=== PATIENT | female | born 1945 | race Caucasian/White ===

== ENCOUNTER 2023-03-19 11:54 | Outpatient (REF) | payer MEDICARE, SELFPAY ==
[2023-03-19 13:43] LABS: Basophils Absolute Auto 0.02 K/uL (0.00-0.30); Basophils Percent Auto 0.3 % (0.0-3.0); Eosinophils Absolute Auto 0.48 K/uL (0.00-0.50); Eosinophils Percent Auto 6.4 % (0.0-7.0); Hematocrit 39.6 % (33.0-51.0); Hemoglobin* 12.4 gm/dL (12.0-16.0); Immature Granulocytes Abs Auto 0.02 K/uL (0.00-0.30); Immature Granulocytes Pct Auto 0.3 %; Lymphocytes Absolute Auto 3.11 K/uL (0.90-2.90); Lymphocytes Percent Auto 41.3 % (20-44); Mean Corpuscular HGB Conc 31 gm/dL (32-36); Mean Corpuscular Hemoglobin 24 pg (26-34); Mean Corpuscular Volume 77 fL (80-100); Monocytes Percent Auto 10.2 % (0.0-11.0); Neutrophils Percent Auto 41.5 % (42.0-72.0); Platelet Count* 338 K/uL (140-440); RDW Coefficient of Variation % 15.6 % (11.5-15.5); Red Blood Count 5.16 m/uL (4.00-5.20); White Blood Count* 7.53 K/uL (4.50-11.00)
[2023-03-19 14:03] LABS: Slide Review Reflex No
[2023-03-19 14:22] LABS: Chloride* 104 mmol/L (96-114); Potassium* 5.1 mmol/L (3.6-5.1); Sodium* 137 mmol/L (135-149)
[2023-03-19 14:24] LABS: Creatinine* 0.8 mg/dL (0.5-1.5); Estimated Glomerular Filt Rate 77 ml/min
[2023-03-19 14:25] LABS: Blood Urea Nitrogen* 25 mg/dL (7-30); Calcium* 10.1 mg/dL (8.4-10.6); Carbon Dioxide* 26 mmol/L (20-32); Glucose* 104 mg/dL (60-115)
== END 2023-03-19 11:55 | disposition home or self-care (01) ==
LOC: NPINS 11:54
PROVIDERS: PCP Family Medicine; Visit Provider Family Medicine
DX: I10 Essential (primary) hypertension (principal); J45.909 Unspecified asthma, uncomplicated
CPT/HCPCS: 80048; 80198; 85025

== ENCOUNTER 2023-08-03 17:16 | Outpatient (CLI) | payer MEDICARE, SELFPAY | END 2023-08-03 17:17 | disposition home or self-care (01) | LOC: AMB 08-28 15:42 | PROVIDERS: PCP Family Medicine; Visit Provider Emergency Medicine Emergency Medical Services | DX: R10.9 Unspecified abdominal pain (principal) | CPT/HCPCS: A0425; A0427 ==

== ENCOUNTER 2023-08-03 17:31 | Inpatient (IN) | payer MEDICARE, SELFPAY ==
[2023-08-03] VITALS (20 sets, daily range): BP systolic 134–158; BP diastolic 81–99; PULSE 76–107; RESP 18–20; TEMP 36.3–36.9; O2SAT 92–96; BMI 29.2; BMI 38.3
--- NOTE | 2023-08-03 18:02 | ED_ITS ---
HPI - General Adult General Chief complaint: Abdominal Pain Stated complaint: Vomiting, ill Time Seen by Provider: 08/03/23 17:36 History of Present Illness HPI narrative: This 78-year-old female comes in from a care facility with her [id number]-[id number]-vgh. She has had a couple episodes of vomiting today. The patient is a poor historian with poor memory. Her kcxbab-tr-oiz states that she has been feeling some abdominal symptoms over the past few days. Her tlkngb-cc-pja reports that there was an obstruction in the past a few years ago that resolved spontaneously over a couple days in the hospital. The patient has had a bowel movement this morning. She arrives with normal vital signs except her pulse is a mildly tachycardic. She denies having any symptoms of dysuria. She does indicate that there is some pain in her left lateral abdomen. Related Data Home Medications Medication Instructions Recorded Confirmed apixaban 5 mg tablet (Eliquis) 5 mg PO BID 08/03/23 08/03/23 apixaban 5 mg tablet (Eliquis) 5 mg PO Q12H 08/03/23 08/03/23 budesonide-formoterol HFA 160 2 puff inhalation Q12H 08/03/23 08/03/23 mcg-4.5 mcg/actuation aerosol inhaler (Symbicort) cholecalciferol (vitamin D3) 125 125 mcg PO DAILY 08/03/23 08/03/23 mcg (5,000 unit) capsule enalapril maleate 5 mg tablet 5 mg PO DAILY 08/03/23 08/03/23 loratadine 10 mg tablet 10 mg PO DAILY 08/03/23 08/03/23 melatonin 3 mg capsule 3 mg PO HS PRN 08/03/23 08/03/23 theophylline 400 mg 800 mg PO DAILY 08/03/23 08/03/23 tablet,extended release 24 hr tiotropium bromide 18 mcg capsule 1 cap inhalation DAILY 08/03/23 08/03/23 with inhalation device (Spiriva with HandiHaler) Allergies Allergy/AdvReac Type Severity Reaction Status Date / Time diphenhydramine Allergy Verified 08/03/23 17:47 naproxen Allergy Verified 08/03/23 17:47 Review of Systems Status of ROS: Reports: unobtainable due to mental status PFSH PFSH Social History Smoking Status: Never smoker How often do you have a drink containing alcohol: 2-3 times a week AUDIT-C Alcohol total score: 3 Non-prescribed substance use: denies use service: No Exam Narrative: Exam Narrative: Constitutional: Well-developed, well-nourished, no acute distress. HEENT: Normocephalic, atraumatic. Neck: Normal range of motion. Nontender. Supple. Heart: Regular. No murmurs. Normal rate. Intact distal pulses. Lungs: Clear to auscultation. No chest discomfort. No wheezes, rhonchi, or rales. Abdomen: Normal bowel sounds. She reports tenderness in the left lateral abdomen. No rebound tenderness. Genitalia: Deferred. Back: No midline tenderness. Normal range of motion. Extremities: Normal range of motion. No injury. Skin: Intact. No rash. Warm. No erythema or pallor. Neurologic: No altered sensation. No weakness. Alert. Psychiatric: No suicidality. No anxiety or depression. No insomnia. Nursing notes and vitals signs are reviewed. Const: Vital Signs, click to edit/add: Vital Signs - 24 hr 08/03/23 17:34 08/03/23 17:46 08/03/23 18:30 Temperature 97.7 F Pulse Rate Pulse Rate [Right Pulse Oximeter] 107 H 104 H Pulse Rate [Right Radial] 104 H 94 Respiratory Rate 18 18 18 Blood Pressure Blood Pressure [Ri ght Upper Arm] 158/85 H 153/81 H 143/82 H Pulse Oximetry 95 93 92 Oxygen Delivery Me thod Room Air Room Air Room Air 08/03/23 19:04 08/03/23 19:58 08/03/23 20:00 Temperature Pulse Rate 91 92 Pulse Rate [Right Pulse Oximeter] 90 Pulse Rate [Right Radial] 90 Respiratory Rate 18 Blood Pressure Blood Pressure [Ri ght Upper Arm] 155/81 H Pulse Oximetry 94 95 94 Oxygen Delivery Me thod Room Air 08/03/23 20:02 08/03/23 20:15 08/03/23 20:30 Temperature Pulse Rate 95 91 90 Pulse Rate [Right Pulse Oximeter] Pulse Rate [Right Radial] Respiratory Rate Blood Pressure 134/82 Blood Pressure [Ri ght Upper Arm] Pulse Oximetry 95 96 95 Oxygen Delivery Me thod 08/03/23 20:32 08/03/23 20:45 08/03/23 21:00 Temperature Pulse Rate 76 87 88 Pulse Rate [Right Pulse Oximeter] Pulse Rate [Right Radial] Respiratory Rate Blood Pressure 152/85 H Blood Pressure [Ri ght Upper Arm] Pulse Oximetry 95 95 96 Oxygen Delivery Me thod 08/03/23 21:02 Temperature Pulse Rate 84 Pulse Rate [Right Pulse Oximeter] Pulse Rate [Right Radial] Respiratory Rate Blood Pressure 153/84 H Blood Pressure [Ri ght Upper Arm] Pulse Oximetry 95 Oxygen Delivery Me thod Course Vital Signs Vital signs: Initial Vital Signs Temperature 97.7 F 08/03/23 17:34 Temperature Source Temporal Artery Scan 08/03/23 17:34 Pulse Rate 107 H 08/03/23 17:34 Respiratory Rate 18 08/03/23 17:34 Blood Pressure 158/85 H 08/03/23 17:34 Blood Pressure Mean 109 H 08/03/23 17:34 Blood Pressure Position Sitting 08/03/23 17:34 Pulse Oximetry 95 08/03/23 17:34 Oxygen Delivery Method Room Air 08/03/23 17:34 Vital Signs Temperature 97.7 F 08/03/23 17:34 Pulse Rate 107 H 08/03/23 17:34 Respiratory Rate 18 08/03/23 17:34 Blood Pressure 158/85 H 08/03/23 17:34 Pulse Oximetry 95 08/03/23 17:34 Oxygen Delivery Method Room Air 08/03/23 17:34 Temperature 97.7 F 08/03/23 17:34 Pulse Rate 84 08/03/23 21:02 Respiratory Rate 18 08/03/23 19:04 Blood Pressure 153/84 H 08/03/23 21:02 Pulse Oximetry 95 08/03/23 21:02 Oxygen Delivery Method Room Air 08/03/23 19:04 Medications Administered Medications: Discontinued Medications Generic Name Dose Route Start Last Admin Trade Name Freq PRN Reason Stop Dose Admin Sodium Chloride 500 mls @ 500 mls/hr 08/03/23 18:00 08/03/23 19:50 0.9 % Sodium Chloride 500 Ml IV 08/03/23 18:59 Infused .Q1H ONE Infusion Ondansetron HCl 4 mg 08/03/23 18:00 08/03/23 18:38 Ondansetron 2 Mg/Ml Inj IVP 08/03/23 18:01 4 mg ONCE ONE Administration Medical Decision Making MDM Narrative Medical decision making narrative: This patient comes in with some vomiting and abdominal discomfort. She has had a bowel obstruction in the past but has not had any abdominal surgery history. X-ray imaging today does show evidence of bowel obstruction. Lab results returned with reassuring findings. Patient has an IV in place and received fluids and nausea medication. I did speak with the surgeon on-call, Dr. Vergara, regarding these findings. A CT scan of the abdomen and pelvis is ordered and after completed the patient will be able to be admitted into the hospital under the care of Dr. Barnes. Lab Data Labs: Lab Results 08/03/23 Range/Units 18:28 WBC 11.50 H (4.50-11.00) K/uL RBC 5.80 H (4.00-5.20) m/uL Hgb 14.0 (12.0-16.0) gm/dL Hct 43.6 (33.0-51.0) % MCV 75 L (80-100) fL MCH 24 L (26-34) pg MCHC 32 (32-36) gm/dL RDW Coeff of Silas 15.3 (11.5-15.5) % Plt Count 329 (140-440) K/uL Neut % (Auto) 75.0 H (42.0-72.0) % Lymph % (Auto) 15.3 L (20-44) % [place] % (Auto) 9.3 (0.0-11.0) % Eos % (Auto) 0.1 (0.0-7.0) % Baso % (Auto) 0.1 (0.0-3.0) % Neut # (Auto) 8.60 H (1.7-7.0) K/uL Lymph # (Auto) 1.80 (0.90-2.90) K/uL [place] # (Auto) 1.10 H (0.00-0.90) K/UL Eos # (Auto) 0.00 (0.00-0.50) K/uL Baso # (Auto) 0.00 (0.00-0.30) K/uL Abs Immat Gran (auto) 0.00 (0.00-0.30) K/uL Imm/Tot Granulo (auto) 0.2 % Sodium 134 L (135-149) mmol/L Potassium 4.4 (3.6-5.1) mmol/L Chloride 99 (96-114) mmol/L Carbon Dioxide 20 (20-32) mmol/L Anion Gap 15 (7-15) mEq/L BUN 34 H (7-30) mg/dL Creatinine 1.0 (0.5-1.5) mg/dL Estimated Creat Clear 41.33 Estimated GFR 58 ml/min Glucose 124 H (60-115) mg/dL Calcium 10.4 (8.4-10.6) mg/dL Discharge Plan Discharge Clinical Impression: Small bowel obstruction Patient Disposition: Admitted As Inpatient Condition: Unchanged Prescriptions: No Action budesonide-formoterol [Symbicort] 160-4.5 mcg/actuation HFA aerosol inhaler 2 puff INHALATION Q12H cholecalciferol (vitamin D3) 125 mcg (5,000 unit) capsule 125 mcg PO DAILY Eliquis 5 mg tablet 5 mg PO BID enalapril maleate 5 mg tablet 5 mg PO DAILY loratadine 10 mg tablet 10 mg PO DAILY Eliquis 5 mg tablet 5 mg PO Q12H melatonin 3 mg capsule 3 mg PO HS PRN theophylline 400 mg tablet extended release 24 hr 800 mg PO DAILY tiotropium bromide [Spiriva with HandiHaler] 18 mcg capsule, w/inhalation device 1 cap INHALATION DAILY Follow Up/Referrals: Melchor aY MD [Primary Care Provider] -
[2023-08-03 18:35] LABS: Basophils Percent Auto 0.1 % (0.0-3.0); Eosinophils Percent Auto 0.1 % (0.0-7.0); Hematocrit 43.6 % (33.0-51.0); Immature Granulocytes Pct Auto 0.2 %; Lymphocytes Percent Auto 15.3 % (20-44); Mean Corpuscular HGB Conc 32 gm/dL (32-36); Mean Corpuscular Hemoglobin 24 pg (26-34); Mean Corpuscular Volume 75 fL (80-100); Monocytes Percent Auto 9.3 % (0.0-11.0); Platelet Count* 329 K/uL (140-440); RDW Coefficient of Variation % 15.3 % (11.5-15.5)
[2023-08-03] MEDS: 0.9 % SODIUM CHLORIDE 500 ML 500 ML IV (18:38)
[2023-08-03] MEDS: ONDANSETRON 2 MG/ML inj 4 MG IVP (18:38)
[2023-08-03 18:48] LABS: Slide Review Reflex No
[2023-08-03 18:49] LABS: Chloride* 99 mmol/L (96-114)
[2023-08-03 18:50] LABS: Potassium* 4.4 mmol/L (3.6-5.1); Sodium* 134 mmol/L (135-149)
--- NOTE | 2023-08-03 18:50 | CRLHL7_ITS ---
For Patients: As a result of the Century Cures Act, medical imaging exams and procedure reports are released immediately into your electronic medical record. You may view this report before your referring provider. If you have questions, please contact your health care provider. INDICATION: Abdominal pain. TECHNIQUE: Flat and upright abdomen. FINDINGS: Stent of loops of small bowel with air-fluid levels compatible with small bowel obstruction. No free air. Dictated by Graham Cameron MD @ 08/03/2023 9:08:16 PM (Electronically Signed)
[2023-08-03 18:52] LABS: Est. Creatinine Clearance* 41.33; Estimated Glomerular Filt Rate 58 ml/min
[2023-08-03 18:53] LABS: Anion Gap 15 mEq/L (7-15); Blood Urea Nitrogen* 34 mg/dL (7-30); Calcium* 10.4 mg/dL (8.4-10.6); Carbon Dioxide* 20 mmol/L (20-32); Glucose* 124 mg/dL (60-115)
--- NOTE | 2023-08-03 21:15 | CRLHL7_ITS ---
For Patients: As a result of the Century Cures Act, medical imaging exams and procedure reports are released immediately into your electronic medical record. You may view this report before your referring provider. If you have questions, please contact your health care provider. INDICATION: Small-bowel obstruction TECHNIQUE: CT abdomen and pelvis acquired with 83 cc Isovue 370 IV contrast. COMPARISON: None. FINDINGS: Lower chest: Unremarkable. Liver: Unremarkable. Normal in size and attenuation. No masses. Gallbladder and bile ducts: Cholelithiasis. No biliary dilatation. Pancreas: Unremarkable. No mass or inflammation. Spleen: Unremarkable. Normal in size. No masses. Adrenal glands: Unremarkable. No nodules. Kidneys: Unremarkable. No masses, stones, or hydronephrosis. GI tract: Dilated fluid-filled loops of small bowel with transition point in the anterior abdomen around image 53 of series 2. Findings compatible with mechanical small-bowel obstruction. Vasculature: Unremarkable. Mesenteric arteries are patent. Lymph nodes: No lymphadenopathy. Omentum/Peritoneum/Abdominal Wall: Unremarkable. No sign of mass or infiltration. No free air or significant free fluid. Pelvis: Unremarkable. Bones: Unremarkable for age. IMPRESSION: Small-bowel obstruction. Please note that all CT scans at this facility use dose modulation, iterative reconstruction, and/or weight-based dosing when appropriate to reduce radiation dose to as low as reasonably achievable. Dictated by Graham Cameron MD @ 08/03/2023 11:46:33 PM (Electronically Signed)
--- NOTE | 2023-08-03 22:02 | ED.NURSE ---
Nurse to nurse report given to bebeto FRASER. patient going to room 245.
--- NOTE | 2023-08-03 23:35 | P.IMHP_ITS ---
Hospitalist- H&P: HPI History of Present Illness Time Seen by Provider: 22:30 Date Seen: 08/04/23 Chief complaint: Vomiting, ill Narrative: Trini Perez is a 78 year old female from [facility] who was brought in by her gfujjo-ts-qzq for nausea and vomiting. Her vkzrwo-yw-xnd is not available to give history at this time. Trini is a poor historian and does not recall vomiting. She is unable to give me much history except to say that she is asthmatic and that she had pain in her left abdomen. She doesn't know when the pain started. She thinks she's had a blockage before. She does not otherwise know her medical history. Some is obtained from records sent by [facility], but this does not include a surgical history. Review of Systems Status of ROS: Reports: unobtainable due to medical condition (Poor historian, doesn't remember when or if symptoms occurred.) [facility] Medical History (Updated 08/04/23 @ 00:40 by Esha Barnes MD) Hyperlipidemia ?E78.5 - Hyperlipidemia, unspecified (ICD-10) Gout ?M10.9 - Gout, unspecified (ICD-10) Essential hypertension ?I10 - Essential (primary) hypertension (ICD-10) Asthma ?J45.909 - Unspecified asthma, uncomplicated (ICD-10) Cognitive impairment ?R41.89 - Other symptoms and signs involving cognitive functions and awareness (ICD-10) Pulmonary embolism ?I26.99 - Other pulmonary embolism without acute cor pulmonale (ICD-10) Social History (Updated 08/04/23 @ 00:26 by Esha Barnes MD) Narrative: [facility]. Says she has a glass of wine some days, but not all days in the week. Lifelong nonsmoker. POLST from 01/04/2022 states FULL CODE. What is your current living situation?: I presently have a place to live Problems where you live: no known problems Problems where you live details: NA In the past 12 months, utilities in danger of being shut off: no In past 12 months, lack of transportation kept you from medical appts, meetings, work, or getting things needed for daily living: no In the past 12 mos, have been you worried that your food would run out before you had money to buy more?: never true In the past 12 mos, the food you bought just didn't last and you didn't have money to buy more?: never true Highest level of school completed/degree received: some college, no degree Smoking Status: Never smoker How often do you have a drink containing alcohol: 2-3 times a week Alcohol type: wine Alcohol type details: 1 glass AUDIT-C Alcohol total score: 3 Non-prescribed substance use: denies use Caffeine: No How often does anyone, including family, friends and others, physically hurt you : never How often does anyone, including family, friends and others, insult or talk down to you: never How often does anyone, including family, friends and others, threaten you with harm: never How often does anyone, including family, friends and others, scream or curse at you: never service: No Meds Home Medications and Allergies Home Medications Medication Instructions Recorded Confirmed Type apixaban 5 mg tablet (Eliquis) 5 mg PO BID 08/03/23 08/03/23 History budesonide-formoterol HFA 160 2 puff inhalation Q12H 08/03/23 08/03/23 History mcg-4.5 mcg/actuation aerosol inhaler (Symbicort) cholecalciferol (vitamin D3) 125 125 mcg PO DAILY 08/03/23 08/03/23 History mcg (5,000 unit) capsule enalapril maleate 5 mg tablet 5 mg PO DAILY 08/03/23 08/03/23 History loratadine 10 mg tablet 10 mg PO DAILY 08/03/23 08/03/23 History melatonin 3 mg capsule 3 mg PO HS PRN 08/03/23 08/03/23 History theophylline 400 mg 600 mg PO DAILY 08/03/23 08/04/23 History tablet,extended release 24 hr tiotropium bromide 18 mcg capsule 1 cap inhalation DAILY 08/03/23 08/03/23 History with inhalation device (Spiriva with HandiHaler) albuterol sulfate 90 mcg/actuation 2 puff inhalation Q4H PRN 08/04/23 08/04/23 History aerosol inhaler lutein 10 mg tablet 20 mg PO DAILY 08/04/23 08/04/23 History Allergies Allergy/AdvReac Type Severity Reaction Status Date / Time diphenhydramine Allergy Verified 08/03/23 17:47 naproxen Allergy Verified 08/03/23 17:47 Exam Narrative: Exam Narrative: General: No acute distress. Awake alert oriented to self, place, basic situation, but not details. HEENT: Normocephalic atraumatic, pupils equally round and reactive to light and accommodation. Oropharynx clear. Mucous membranes are slightly dry. No cervical lymphadenopathy, thyromegaly or carotid bruits. No JVD. Cardiovascular: Regular rate and rhythm. No murmurs, gallops, or rubs. Chest: No increased work of breathing. Clear to auscultation bilaterally. No crackles or wheezes. Abdomen: Bowel sounds diminished. Obese. Soft, nondistended, mildly tender in the left upper abdomen, without rebound tenderness or guarding. No hepatosplenomegaly or masses. Extremities: No edema, no cyanosis or clubbing. Skin: No jaundice, no pallor, no rashes. Const: Vital Signs, click to edit/add: Vital Signs - 24 hr 08/03/23 17:34 08/03/23 17:46 08/03/23 18:30 Temperature 97.7 F Pulse Rate Pulse Rate [Left R adial] Pulse Rate [Right Pulse Oximeter] 107 H 104 H Pulse Rate [Right Radial] 104 H 94 Respiratory Rate 18 18 18 Blood Pressure Blood Pressure [Ri ght Arm] Blood Pressure [Ri ght Upper Arm] 158/85 H 153/81 H 143/82 H Pulse Oximetry 95 93 92 Oxygen Delivery Me thod Room Air Room Air Room Air 08/03/23 19:04 08/03/23 19:58 08/03/23 20:00 Temperature Pulse Rate 91 92 Pulse Rate [Left R adial] Pulse Rate [Right Pulse Oximeter] 90 Pulse Rate [Right Radial] 90 Respiratory Rate 18 Blood Pressure Blood Pressure [Ri ght Arm] Blood Pressure [Ri ght Upper Arm] 155/81 H Pulse Oximetry 94 95 94 Oxygen Delivery Me thod Room Air 08/03/23 20:02 08/03/23 20:15 08/03/23 20:30 Temperature Pulse Rate 95 91 90 Pulse Rate [Left R adial] Pulse Rate [Right Pulse Oximeter] Pulse Rate [Right Radial] Respiratory Rate Blood Pressure 134/82 Blood Pressure [Ri ght Arm] Blood Pressure [Ri ght Upper Arm] Pulse Oximetry 95 96 95 Oxygen Delivery Me thod 08/03/23 20:32 08/03/23 20:45 08/03/23 21:00 Temperature Pulse Rate 76 87 88 Pulse Rate [Left R adial] Pulse Rate [Right Pulse Oximeter] Pulse Rate [Right Radial] Respiratory Rate Blood Pressure 152/85 H Blood Pressure [Ri ght Arm] Blood Pressure [Ri ght Upper Arm] Pulse Oximetry 95 95 [facility] 21:02 08/03/23 21:03 08/03/23 21:15 Temperature Pulse Rate 84 87 90 Pulse Rate [Left R adial] Pulse Rate [Right Pulse Oximeter] Pulse Rate [Right Radial] Respiratory Rate Blood Pressure 153/84 H Blood Pressure [Ri ght Arm] Blood Pressure [Ri ght Upper Arm] Pulse Oximetry 95 95 95 [facility] 08/03/23 21:30 08/03/23 21:31 08/03/23 22:26 Temperature 97.4 F L Pulse Rate 76 90 Pulse Rate [Left R adial] 89 Pulse Rate [Right Pulse Oximeter] Pulse Rate [Right Radial] Respiratory Rate 20 Blood Pressure 155/99 H Blood Pressure [Ri ght Arm] 145/84 H Blood Pressure [Ri ght Upper Arm] Pulse Oximetry 95 95 96 [facility] 08/03/23 22:29 Temperature 97.4 F L Pulse Rate Pulse Rate [Left R adial] 89 Pulse Rate [Right Pulse Oximeter] Pulse Rate [Right Radial] Respiratory Rate 20 Blood Pressure Blood Pressure [Ri ght Arm] 145/84 H Blood Pressure [Ri ght Upper Arm] Pulse Oximetry 96 [facility] Hospitalist - H&P: Result Labs Labs: Short CBC 08/03/23 Range/Units 18:28 WBC 11.50 H (4.50-11.00) K/uL Hgb 14.0 (12.0-16.0) gm/dL Hct 43.6 (33.0-51.0) % Plt Count 329 (140-440) K/uL BMP 08/03/23 18:28 Sodium 134 L Potassium 4.4 Chloride 99 Carbon Dioxide 20 BUN 34 H Creatinine 1.0 Glucose 124 H Calcium 10.4 Ordering Physician: Meng Alvarado M.D. Date of Service: 08/03/23 Procedure(s): XR abdomen min 2V Accession Number(s): [id number] cc: Meng Alvarado M.D.; Melchor Ya M.D.~ For Patients: As a result of the Cures Act, medical imaging exams and procedure reports are released immediately into your electronic medical record. You may view this report before your referring provider. If you have questions, please contact your health care provider. INDICATION: Abdominal pain. TECHNIQUE: Flat and upright abdomen. FINDINGS: Stent of loops of small bowel with air-fluid levels compatible with small bowel obstruction. No free air. Dictated by Graham Cameron MD @ 08/03/2023 9:08:16 PM (Electronically Signed) Ordering Physician: Meng Alvarado M.D. Date of Service: 08/03/23 Procedure(s): CT abdomen pelvis w con Accession Number(s): [id number] cc: Meng Alvarado M.D.; Melchor Ya M.D.~ For Patients: As a result of the Cures Act, medical imaging exams and procedure reports are released immediately into your electronic medical record. You may view this report before your referring provider. If you have questions, please contact your health care provider. INDICATION: Small-bowel obstruction TECHNIQUE: CT abdomen and pelvis acquired with 83 cc Isovue 370 IV contrast. COMPARISON: None. FINDINGS: Lower chest: Unremarkable. Liver: Unremarkable. Normal in size and attenuation. No masses. Gallbladder and bile ducts: Cholelithiasis. No biliary dilatation. Pancreas: Unremarkable. No mass or inflammation. Spleen: Unremarkable. Normal in size. No masses. Adrenal glands: Unremarkable. No nodules. Kidneys: Unremarkable. No masses, stones, or hydronephrosis. GI tract: Dilated fluid-filled loops of small bowel with transition point in the anterior abdomen around image 53 of series 2. Findings compatible with mechanical small-bowel obstruction. Vasculature: Unremarkable. Mesenteric arteries are patent. Lymph nodes: No lymphadenopathy. Omentum/Peritoneum/Abdominal Wall: Unremarkable. No sign of mass or infiltration. No free air or significant free fluid. Pelvis: Unremarkable. Bones: Unremarkable for age. IMPRESSION: Small-bowel obstruction. Please note that all CT scans at this facility use dose modulation, iterative reconstruction, and/or weight-based dosing when appropriate to reduce radiation dose to as low as reasonably achievable. Dictated by Graham Cameron MD @ 08/03/2023 11:46:33 PM (Electronically Signed) Assessment and Plan Assessment and plan (1) Small bowel obstruction: Problem comment: - She is not currently nauseous and looks fairly well. I do not think she needs an NGT at this time. IVF maintenance. Admit, NPO, ondansetron prn. No known h/o abdominal surgeries. Obtain records from [place]. Will consult general surgery. Status: Acute (2) Cognitive impairment: Problem comment: Mild, will need to obtain outside records as patient is essentially unable to give history. Status: Chronic (3) Asthma: Problem comment: Continue home meds. Status: Chronic (4) Essential hypertension: Problem comment: Continue home meds. Status: Chronic (5) Hyperlipidemia: Problem comment: Continue home meds. Status: Chronic Plan H/o PE: continue Eliquis.
[2023-08-04] MEDS: LACTATED RINGERS 1000 ML 1,000 ML 75 ML IV ×2 (00:33→11:13)
[2023-08-04] MEDS: SODIUM CHLORIDE 0.9 % (FLUSH) 10 ML SYRINGE 5 ML IVF ×2 (02:05→21:00)
[2023-08-04] MEDS: ONDANSETRON 2 MG/ML inj 4 MG IVP (02:05)
[2023-08-04 04:56] VITALS: BP 179/100; PULSE 99; RESP 20; TEMP 36.6; O2SAT 93
[2023-08-04] MEDS: PROCHLORPERAZINE 5 MG/ML VIAL 10 MG IV (05:38)
--- NOTE | 2023-08-04 06:37 | PC.NURSE ---
[id number]: Patient cooperative with cares. A&Ox3 with confusion. A1/walker/GB. 2 small emesis at approximately 0200 and 0500. Zofran not effective so Briseyda WEST updated and Compazine ordered and administered for relief. NPO. Rating abdominal pain 09/21. Declined pain medications. BS hypoactive.
[2023-08-04 06:39] LABS: Basophils Percent Auto 0.2 % (0.0-3.0); Eosinophils Percent Auto 0.1 % (0.0-7.0); Hematocrit 42.3 % (33.0-51.0); Hemoglobin* 13.6 gm/dL (12.0-16.0); Immature Granulocytes Pct Auto 0.3 %; Lymphocytes Percent Auto 18.2 % (20-44); Mean Corpuscular HGB Conc 32 gm/dL (32-36); Mean Corpuscular Hemoglobin 24 pg (26-34); Mean Corpuscular Volume 75 fL (80-100); Monocytes Percent Auto 10.6 % (0.0-11.0); Neutrophils Percent Auto 70.6 % (42.0-72.0); Platelet Count* 294 K/uL (140-440); RDW Coefficient of Variation % 15.6 % (11.5-15.5); Red Blood Count 5.65 m/uL (4.00-5.20); White Blood Count* 11.56 K/uL (4.50-11.00)
[2023-08-04 06:46] LABS: Slide Review Reflex No
[2023-08-04 07:00] LABS: Chloride* 100 mmol/L (96-114); Potassium* 4.5 mmol/L (3.6-5.1); Sodium* 135 mmol/L (135-149)
[2023-08-04 07:03] LABS: Anion Gap 12 mEq/L (7-15); Blood Urea Nitrogen* 32 mg/dL (7-30); Carbon Dioxide* 23 mmol/L (20-32); Est. Creatinine Clearance* 41.33; Estimated Glomerular Filt Rate 58 ml/min
[2023-08-04 07:04] LABS: Calcium* 10.3 mg/dL (8.4-10.6); Glucose* 119 mg/dL (60-115)
[2023-08-04 09:00] VITALS: BP 143/94; PULSE 90; RESP 20; TEMP 36.6; O2SAT 98
[2023-08-04] MEDS: APIXABAN 5 MG TABLET PO ×2 (09:03→21:00)
[2023-08-04] MEDS: ENALAPRIL MALEATE 10 MG TABLET 5 MG PO (09:04)
[2023-08-04 11:15] VITALS: BP 146/78; PULSE 74; RESP 18; TEMP 36.9; O2SAT 96
--- NOTE | 2023-08-04 11:17 | PM.IMPN1 ---
Progress Note: A&P Assessment and plan (1) Small bowel obstruction: Problem details: - She is not currently nauseous and looks fairly well. I do not think she needs an NGT at this time. IVF maintenance. Admit, NPO, ondansetron prn. No known h/o abdominal surgeries. Obtain records from [place]. Will consult general surgery. Due to cognitive impairment may be difficult to determine when she is passing gas Status: Acute (2) Cognitive impairment: Problem details: Mild, will need to obtain outside records as patient is essentially unable to give history. Status: Chronic (3) Asthma: Problem details: Continue home meds. Asthma seems quiescent at this time Status: Chronic (4) Essential hypertension: Problem details: Continue home meds. Status: Chronic (5) Pulmonary embolism: Problem details: Remains on eliquis for this. Continue Eliquis as patient does not appear to be needing surgery at this time Status: Acute Plan Continue in hospital for IV fluids, monitoring of bowel obstruction and potential complications and monitoring for evidence of resolution of bowel obstruction. Obtain additional records if possible to determine previous history of bowel obstruction and previous history of abdominal surgery. Time Spent With Patient Total time spent: Total time spent today is 55 minutes, 40 minutes in coordination of care and attempts to obtain prior medical history. Subjective Date Seen: 08/04/23 Interval history: 78-year-old female resident of [facility] admitted through the emergency department last night with nausea and vomiting. Patient is unable to give any history of this. She tells me she thinks she had some left flank plain yesterday but that is gone today. She had an emesis during the night but otherwise reports feeling fine this morning she reports she is hungry and thirsty today. She does not know if she has had a bowel movement or passed any gas. She thinks she had a normal bowel movement yesterday. She is unsure if she has had previous bowel obstructions or previous abdominal surgery. She does have a midline laparotomy scar from unknown previous surgery. Prior records are still pending Exam Narrative: Exam Narrative: She is alert and appears in no distress. She gives her own history. Speech is fluent. Respirations are clear to auscultation. Cardiovascular: S1, S2, regular rate and rhythm. Abdomen: Bowel sounds present. Abdomen is soft without tenderness or mass. She does not appear to have abdominal distension. Midline laparotomy scar is noted. Extremities without edema. She moves all 4 extremities well. Const: Vital Signs, click to edit/add: Vital Signs - 24 hr 08/03/23 17:34 08/03/23 17:46 08/03/23 18:30 Temperature 97.7 F Pulse Rate Pulse Rate [Left R adial] Pulse Rate [Right Pulse Oximeter] 107 H 104 H Pulse Rate [Right Radial] 104 H 94 Respiratory Rate 18 18 18 Blood Pressure Blood Pressure [Ri ght Arm] Blood Pressure [Ri ght Upper Arm] 158/85 H 153/81 H 143/82 H Pulse Oximetry 95 93 92 Oxygen Delivery Me thod Room Air Room Air Room Air 08/03/23 19:04 08/03/23 19:58 08/03/23 20:00 Temperature Pulse Rate 91 92 Pulse Rate [Left R adial] Pulse Rate [Right Pulse Oximeter] 90 Pulse Rate [Right Radial] 90 Respiratory Rate 18 Blood Pressure Blood Pressure [Ri ght Arm] Blood Pressure [Ri ght Upper Arm] 155/81 H Pulse Oximetry 94 95 94 Oxygen Delivery Me thod Room Air 08/03/23 20:02 08/03/23 20:15 08/03/23 20:30 Temperature Pulse Rate 95 91 90 Pulse Rate [Left R adial] Pulse Rate [Right Pulse Oximeter] Pulse Rate [Right Radial] Respiratory Rate Blood Pressure 134/82 Blood Pressure [Ri ght Arm] Blood Pressure [Ri ght Upper Arm] Pulse Oximetry 95 96 95 Oxygen Delivery Me thod 08/03/23 20:32 08/03/23 20:45 08/03/23 21:00 Temperature Pulse Rate 76 87 88 Pulse Rate [Left R adial] Pulse Rate [Right Pulse Oximeter] Pulse Rate [Right Radial] Respiratory Rate Blood Pressure 152/85 H Blood Pressure [Ri ght Arm] Blood Pressure [Ri ght Upper Arm] Pulse Oximetry 95 95 96 Oxygen Delivery Me thod 08/03/23 21:02 08/03/23 21:03 08/03/23 21:15 Temperature Pulse Rate 84 87 90 Pulse Rate [Left R adial] Pulse Rate [Right Pulse Oximeter] Pulse Rate [Right Radial] Respiratory Rate Blood Pressure 153/84 H Blood Pressure [Ri ght Arm] Blood Pressure [Ri ght Upper Arm] Pulse Oximetry 95 95 95 Oxygen Delivery Me thod 08/03/23 21:30 08/03/23 21:31 08/03/23 22:26 Temperature 97.4 F L Pulse Rate 76 90 Pulse Rate [Left R adial] 89 Pulse Rate [Right Pulse Oximeter] Pulse Rate [Right Radial] Respiratory Rate 20 Blood Pressure 155/99 H Blood Pressure [Ri ght Arm] 145/84 H Blood Pressure [Ri ght Upper Arm] Pulse Oximetry 95 95 96 Oxygen Delivery Me thod Room Air 08/03/23 22:29 08/03/23 23:52 08/04/23 04:56 Temperature 97.4 F L 98.5 F 97.8 F Pulse Rate Pulse Rate [Left R adial] 89 88 99 Pulse Rate [Right Pulse Oximeter] Pulse Rate [Right Radial] Respiratory Rate 20 20 20 Blood Pressure Blood Pressure [Ri ght Arm] 145/84 H 152/91 H 179/100 H Blood Pressure [Ri ght Upper Arm] Pulse Oximetry 96 94 93 Oxygen Delivery Me thod Room Air Room Air Room Air 08/04/23 09:00 08/04/23 09:00 Temperature 97.9 F Pulse Rate Pulse Rate [Left R adial] 90 Pulse Rate [Right Pulse Oximeter] 90 Pulse Rate [Right Radial] Respiratory Rate 20 Blood Pressure Blood Pressure [Ri ght Arm] 143/94 H Blood Pressure [Ri ght Upper Arm] Pulse Oximetry 98 Oxygen Delivery Me thod Room Air Documenting provider has reviewed patient's vital signs: yes Labs Labs: Laboratory Results - last 24 hr 08/03/23 08/04/23 18:28 05:40 WBC 11.50 H 11.56 H RBC 5.80 H 5.65 H Hgb 14.0 13.6 Hct 43.6 42.3 MCV 75 L 75 L MCH 24 L 24 L MCHC 32 32 RDW Coeff of Silas 15.3 15.6 H Plt Count 329 294 Neut % (Auto) 75.0 H 70.6 Lymph % (Auto) 15.3 L 18.2 L [facility] % (Auto) 9.3 10.6 Eos % (Auto) 0.1 0.1 Baso % (Auto) 0.1 0.2 Neut # (Auto) 8.60 H 8.20 H Lymph # (Auto) 1.80 2.10 [facility] # (Auto) 1.10 H 1.20 H Eos # (Auto) 0.00 0.00 Baso # (Auto) 0.00 0.00 Abs Immat Gran (auto) 0.00 0.00 Imm/Tot Granulo (auto) 0.2 0.3 Sodium 134 L 135 Potassium 4.4 4.5 Chloride 99 100 Carbon Dioxide 20 23 Anion Gap 15 12 BUN 34 H 32 H Creatinine 1.0 1.0 Estimated Creat Clear 41.33 41.33 Estimated GFR 58 58 Glucose 124 H 119 H Calcium 10.4 10.3
[2023-08-04 15:00] VITALS: BP 149/82; PULSE 78; PULSE 95; RESP 18; TEMP 37.2; O2SAT 95
--- NOTE | 2023-08-04 15:04 | PM.GSCN ---
History of Present Illness Consult details Date Seen: 08/04/23 Consult date: 08/04/23 Narrative: Trini is a 78-year-old female presented to the emergency department yesterday from her apartment at [facility] for nausea and vomiting. She states that yesterday she was not feeling well and developed pain on her left side. She states that she ?laid low. ? She is not sure why she was brought in, but per report she was vomiting. She states that she had a bowel movement yesterday. She has not been passing gas and stools been here but just now she has noted some gurgling in her stomach. She denies any nausea. She is thirsty. She states she has had a bowel obstruction previously. She has had abdominal surgery in the past but she is not sure what it was for. She states that it was a long time ago and she does not remember. She has not been vomiting this morning but did vomit once overnight. She is on Eliquis for PE. [facility] Medical History (Updated 08/04/23 @ 11:25 by Aditya Will MD) Hyperlipidemia ?E78.5 - Hyperlipidemia, unspecified (ICD-10) Gout ?M10.9 - Gout, unspecified (ICD-10) Essential hypertension ?I10 - Essential (primary) hypertension (ICD-10) Asthma ?J45.909 - Unspecified asthma, uncomplicated (ICD-10) Cognitive impairment ?R41.89 - Other symptoms and signs involving cognitive functions and awareness (ICD-10) Pulmonary embolism ?I26.99 - Other pulmonary embolism without acute cor pulmonale (ICD-10) Social History (Updated 08/04/23 @ 00:26 by Esha Barnes MD) Narrative: [facility]. Says she has a glass of wine some days, but not all days in the week. Lifelong nonsmoker. POLST from 01/04/2022 states FULL CODE. What is your current living situation?: I presently have a place to live Problems where you live: no known problems Problems where you live details: NA In the past 12 months, utilities in danger of being shut off: no In past 12 months, lack of transportation kept you from medical appts, meetings, work, or getting things needed for daily living: no In the past 12 mos, have been you worried that your food would run out before you had money to buy more?: never true In the past 12 mos, the food you bought just didn't last and you didn't have money to buy more?: never true Highest level of school completed/degree received: some college, no degree Smoking Status: Never smoker How often do you have a drink containing alcohol: 2-3 times a week Alcohol type: wine Alcohol type details: 1 glass AUDIT-C Alcohol total score: 3 Non-prescribed substance use: denies use Caffeine: No How often does anyone, including family, friends and others, physically hurt you: never How often does anyone, including family, friends and others, insult or talk down to you: never How often does anyone, including family, friends and others, threaten you with harm: never How often does anyone, including family, friends and others, scream or curse at you: never service: No Meds Home Medications and Allergies Home Medications Medication Instructions Recorded Confirmed Type apixaban 5 mg tablet (Eliquis) 5 mg PO BID 08/03/23 08/03/23 History budesonide-formoterol HFA 160 2 puff inhalation Q12H 08/03/23 08/03/23 History mcg-4.5 mcg/actuation aerosol inhaler (Symbicort) cholecalciferol (vitamin D3) 125 125 mcg PO DAILY 08/03/23 08/03/23 History mcg (5,000 unit) capsule enalapril maleate 5 mg tablet 5 mg PO DAILY 08/03/23 08/03/23 History loratadine 10 mg tablet 10 mg PO DAILY 08/03/23 08/03/23 History tiotropium bromide 18 mcg capsule 1 cap inhalation DAILY 08/03/23 08/03/23 History with inhalation device (Spiriva with HandiHaler) acetaminophen 500 mg tablet (Pain 1,000 mg PO BID 08/04/23 08/04/23 History Reliever Extra Strength (acetaminophen)) lutein 10 mg tablet 20 mg PO DAILY 08/04/23 08/04/23 History melatonin 3 mg tablet 3 mg PO HS 08/04/23 08/04/23 History theophylline 600 mg 600 mg PO DAILY asthma 08/04/23 08/04/23 History tablet,extended release 24 hr Allergies Allergy/AdvReac Type Severity Reaction Status Date / Time diphenhydramine Allergy Verified 08/03/23 17:47 naproxen Allergy Verified 08/03/23 17:47 Exam Narrative: Exam Narrative: General appearance: Alert, cooperative, and in no distress Eyes: PERRLA, eye lids clear, and sclera white HENT Head: Normocephalic Ears: External ears normal Pulmonary: Breathing nonlabored on room air Cardiovascular Heart: Regular rate Extremities: warm and well perfused Gastrointestinal Abdominal: Lower midline scar. Abdomen is protuberant. Possibly distended. Minimally tender to palpation. No guarding or rebound. Hypoactive bowel sounds. Musculoskeletal: Extremities: Upper: Both upper extremities have normal joint range of motion and intact strength. Lower: Both lower extremities have normal joint range of motion and intact strength. Skin: Normal skin color, texture, and turgor. Neurologic: No focal deficits Psychiatric: Alert, oriented, cooperative, normal affect. Const: Vital Signs, click to edit/add: Vital Signs - 24 hr 08/03/23 17:34 08/03/23 17:46 08/03/23 18:30 Temperature 97.7 F Pulse Rate Pulse Rate [Left R adial] Pulse Rate [Right Pulse Oximeter] 107 H 104 H Pulse Rate [Right Radial] 104 H 94 Respiratory Rate 18 18 18 Blood Pressure Blood Pressure [Ri ght Arm] Blood Pressure [Ri ght Upper Arm] 158/85 H 153/81 H 143/82 H Pulse Oximetry 95 93 92 Oxygen Delivery Me thod Room Air Room Air Room Air 08/03/23 19:04 08/03/23 19:58 08/03/23 20:00 Temperature Pulse Rate 91 92 Pulse Rate [Left R adial] Pulse Rate [Right Pulse Oximeter] 90 Pulse Rate [Right Radial] 90 Respiratory Rate 18 Blood Pressure Blood Pressure [Ri ght Arm] Blood Pressure [Ri ght Upper Arm] 155/81 H Pulse Oximetry 94 95 94 Oxygen Delivery Me thod Room Air 08/03/23 20:02 08/03/23 20:15 08/03/23 20:30 Temperature Pulse Rate 95 91 90 Pulse Rate [Left R adial] Pulse Rate [Right Pulse Oximeter] Pulse Rate [Right Radial] Respiratory Rate Blood Pressure 134/82 Blood Pressure [Ri ght Arm] Blood Pressure [Ri ght Upper Arm] Pulse Oximetry 95 96 95 Oxygen Delivery Me thod 08/03/23 20:32 08/03/23 20:45 08/03/23 21:00 Temperature Pulse Rate 76 87 88 Pulse Rate [Left R adial] Pulse Rate [Right Pulse Oximeter] Pulse Rate [Right Radial] Respiratory Rate Blood Pressure 152/85 H Blood Pressure [Ri ght Arm] Blood Pressure [Ri ght Upper Arm] Pulse Oximetry 95 95 96 Oxygen Delivery Me thod 08/03/23 21:02 08/03/23 21:03 08/03/23 21:15 Temperature Pulse Rate 84 87 90 Pulse Rate [Left R adial] Pulse Rate [Right Pulse Oximeter] Pulse Rate [Right Radial] Respiratory Rate Blood Pressure 153/84 H Blood Pressure [Ri ght Arm] Blood Pressure [Ri ght Upper Arm] Pulse Oximetry 95 95 95 Oxygen Delivery Me thod 08/03/23 21:30 08/03/23 21:31 08/03/23 22:26 Temperature 97.4 F L Pulse Rate 76 90 Pulse Rate [Left R adial] 89 Pulse Rate [Right Pulse Oximeter] Pulse Rate [Right Radial] Respiratory Rate 20 Blood Pressure 155/99 H Blood Pressure [Ri ght Arm] 145/84 H Blood Pressure [Ri ght Upper Arm] Pulse Oximetry 95 95 96 Oxygen Delivery Me thod Room Air 08/03/23 22:29 08/03/23 23:52 08/04/23 04:56 Temperature 97.4 F L 98.5 F 97.8 F Pulse Rate Pulse Rate [Left R adial] 89 88 99 Pulse Rate [Right Pulse Oximeter] Pulse Rate [Right Radial] Respiratory Rate 20 20 20 Blood Pressure Blood Pressure [Ri ght Arm] 145/84 H 152/91 H 179/100 H Blood Pressure [Ri ght Upper Arm] Pulse Oximetry 96 94 93 Oxygen Delivery Me thod Room Air Room Air Room Air 08/04/23 09:00 08/04/23 09:00 08/04/23 11:15 Temperature 97.9 F 98.5 F Pulse Rate Pulse Rate [Left R adial] 90 74 Pulse Rate [Right Pulse Oximeter] 90 Pulse Rate [Right Radial] Respiratory Rate 20 18 Blood Pressure Blood Pressure [Ri ght Arm] 143/94 H 146/78 H Blood Pressure [Ri ght Upper Arm] Pulse Oximetry 98 96 Oxygen Delivery Me thod Room Air Room Air Results Labs Labs: Abnormal lab results 08/03/23 08/04/23 Range/Units 18:28 05:40 WBC 11.50 H 11.56 H (4.50-11.00) K/uL RBC 5.80 H 5.65 H (4.00-5.20) m/uL MCV 75 L 75 L (80-100) fL MCH 24 L 24 L (26-34) pg RDW Coeff of Silas 15.6 H (11.5-15.5) % Neut % (Auto) 75.0 H (42.0-72.0) % Lymph % (Auto) 15.3 L 18.2 L (20-44) % Neut # (Auto) 8.60 H 8.20 H (1.7-7.0) K/uL [place] # (Auto) 1.10 H 1.20 H (0.00-0.90) K/UL Sodium 134 L (135-149) mmol/L BUN 34 H 32 H (7-30) mg/dL Glucose 124 H 119 H (60-115) mg/dL Diabetes panel 08/03/23 08/04/23 Range/Units 18:28 05:40 Sodium 134 L 135 (135-149) mmol/L Potassium 4.4 4.5 (3.6-5.1) mmol/L Chloride 99 100 (96-114) mmol/L Carbon Dioxide 20 23 (20-32) mmol/L BUN 34 H 32 H (7-30) mg/dL Creatinine 1.0 1.0 (0.5-1.5) mg/dL Glucose 124 H 119 H (60-115) mg/dL Calcium 10.4 10.3 (8.4-10.6) mg/dL Calcium panel 08/03/23 08/04/23 Range/Units 18:28 05:40 Calcium 10.4 10.3 (8.4-10.6) mg/dL Pituitary panel 08/03/23 08/04/23 Range/Units 18:28 05:40 Sodium 134 L 135 (135-149) mmol/L Potassium 4.4 4.5 (3.6-5.1) mmol/L Chloride 99 100 (96-114) mmol/L Carbon Dioxide 20 23 (20-32) mmol/L BUN 34 H 32 H (7-30) mg/dL Creatinine 1.0 1.0 (0.5-1.5) mg/dL Glucose 124 H 119 H (60-115) mg/dL Calcium 10.4 10.3 (8.4-10.6) mg/dL Adrenal panel 08/03/23 08/04/23 Range/Units 18:28 05:40 Sodium 134 L 135 (135-149) mmol/L Potassium 4.4 4.5 (3.6-5.1) mmol/L Chloride 99 100 (96-114) mmol/L Carbon Dioxide 20 23 (20-32) mmol/L BUN 34 H 32 H (7-30) mg/dL Creatinine 1.0 1.0 (0.5-1.5) mg/dL Glucose 124 H 119 H (60-115) mg/dL Calcium 10.4 10.3 (8.4-10.6) mg/dL All other labs normal. Imaging Abdomen CT scan report/results: report reviewed and image reviewed Additional studies: INDICATION: Small-bowel obstruction TECHNIQUE: CT abdomen and pelvis acquired with 83 cc Isovue 370 IV contrast. COMPARISON: None. FINDINGS: Lower chest: Unremarkable. Liver: Unremarkable. Normal in size and attenuation. No masses. Gallbladder and bile ducts: Cholelithiasis. No biliary dilatation. Pancreas: Unremarkable. No mass or inflammation. Spleen: Unremarkable. Normal in size. No masses. Adrenal glands: Unremarkable. No nodules. Kidneys: Unremarkable. No masses, stones, or hydronephrosis. GI tract: Dilated fluid-filled loops of small bowel with transition point in the anterior abdomen around image 53 of series 2. Findings compatible with mechanical small-bowel obstruction. Vasculature: Unremarkable. Mesenteric arteries are patent. Lymph nodes: No lymphadenopathy. Omentum/Peritoneum/Abdominal Wall: Unremarkable. No sign of mass or infiltration. No free air or significant free fluid. Pelvis: Unremarkable. Bones: Unremarkable for age. IMPRESSION: Small-bowel obstruction. Please note that all CT scans at this facility use dose modulation, iterative reconstruction, and/or weight-based dosing when appropriate to reduce radiation dose to as low as reasonably achievable. Dictated by Graham Cameron MD @ 08/03/2023 11:46:33 PM Assessment and Plan Assessment and plan (1) Small bowel obstruction: Problem comment: - She is not currently nauseous and looks fairly well. I do not think she needs an NGT at this time. IVF maintenance. Admit, NPO, ondansetron prn. No known h/o abdominal surgeries. Obtain records from [place]. Will consult general surgery. Due to cognitive impairment may be difficult to determine when she is passing gas Status: Acute (2) Pulmonary embolism: Problem comment: Remains on eliquis for this. Continue Eliquis as patient does not appear to be needing surgery at this time Status: Acute (3) Cognitive impairment: Problem comment: Mild, will need to obtain outside records as patient is essentially unable to give history. Status: Chronic (4) Hyperlipidemia: Problem comment: Continue home meds. Status: Chronic (5) Essential hypertension: Problem comment: Continue home meds. Status: Chronic (6) Asthma: Problem comment: Continue home meds. Asthma seems quiescent at this time Status: Chronic Plan Trini is a 78-year-old female a small-bowel obstruction. She does have history of an unknown surgery, possibly ovarian cyst excision in the past. I explained to her that management of bowel obstruction consists of bowel rest, NPO and time. If she develops nausea or vomiting, consideration should be have her NG tube placement. I am okay with her having ice chips for comfort. -abdomen is currently benign and she is comfortable. Therefore Eliquis has not been held. I think this is reasonable, however she does not have relief of her obstruction, then, we will need to hold this in anticipation for potential surgical exploration. -she can have some ice chips for comfort, however I explained that she should minimize excessive p.o. intake as this will make her more uncomfortable if she continues to be obstructed. -if she develops worsening pain, tachycardia or other signs of bowel ischemia, would need to proceed to the OR more urgently.
--- NOTE | 2023-08-04 15:50 | PC.NURSE ---
Pt denies pain, N/V. No antiemetics needed on writers shift. Pt up with SBA/independent with use of 2wheel walker. Pt has hx of dementia, unable to answer when last BM was; states yesterday but doesn't know day or date.
[2023-08-04 19:00] VITALS: BP 156/77; PULSE 83; RESP 18; TEMP 37.1; O2SAT 93
[2023-08-04] MEDS: LACTATED RINGERS 1000 ML 1,000 ML 125 ML IV (19:49)
--- NOTE | 2023-08-04 21:24 | PC.NURSE ---
[id number] Pt pleasant and cooperative, some forgetfulness noted. Up to BR x1, walker, GB, SBA. NPO with some ice chips for comfort, no N/V this shift.
[2023-08-04 23:44] VITALS: BP 154/90; PULSE 82; RESP 22; TEMP 36.9; O2SAT 92
[2023-08-05] MEDS: HYDROmorphone 0.5 mg/0.5 ml inj IVP (03:00)
[2023-08-05] MEDS: SODIUM CHLORIDE 0.9 % (FLUSH) 10 ML SYRINGE 5 ML IVF ×2 (03:01→21:09)
[2023-08-05 03:05] VITALS: BP 174/92; PULSE 77; RESP 20; TEMP 37.1; O2SAT 90
[2023-08-05] MEDS: LACTATED RINGERS 1000 ML 1,000 ML 125 ML IV ×3 (03:07→19:21)
--- NOTE | 2023-08-05 06:32 | PC.NURSE ---
[id number]: Patient cooperative with cares. BS hypo. Patient reports passing gas but nurse did not witnessed any such events. A1/walker/GB. At beginning of shift patient reported an ache in abdomen. Mid-shift patient reported abdominal discomfort and rated 4/10 pain. PRN Dilaudid administered for relief.
[2023-08-05 07:35] VITALS: BP 168/83; PULSE 74; RESP 20; TEMP 36.9; O2SAT 96
[2023-08-05] MEDS: ENALAPRIL MALEATE 10 MG TABLET 5 MG PO (08:59)
[2023-08-05] MEDS: APIXABAN 5 MG TABLET PO ×2 (08:59→21:09)
[2023-08-05 11:00] VITALS: BP 153/78; PULSE 72; RESP 20; TEMP 36.8; O2SAT 95
--- NOTE | 2023-08-05 11:50 | P.GSPN_ITS ---
Subjective Subjective Date Seen: 08/05/23 Interval history: Trini Is doing better. She is denying pain. States she is passing gas from below. No nausea. No bowel movement yet. Exam Narrative: Exam Narrative: General: No acute distress Abdomen: Soft. Nontender. Hypoactive bowel sounds. Const: Vital Signs, click to edit/add: Vital Signs - 24 hr 08/04/23 15:00 08/04/23 19:00 08/04/23 23:44 Temperature 99.0 F 98.7 F 98.5 F Pulse Rate [Left R adial] 78 Pulse Rate [Right Pulse Oximeter] 95 83 82 Respiratory Rate 18 18 22 Blood Pressure [Ri ght Arm] 149/82 H 156/77 H 154/90 H Pulse Oximetry 95 93 92 Oxygen Delivery Me thod Room Air Room Air Room Air 08/05/23 03:05 08/05/23 07:35 Temperature 98.7 F 98.4 F Pulse Rate [Left R adial] Pulse Rate [Right Pulse Oximeter] 77 74 Respiratory Rate 20 20 Blood Pressure [Ri ght Arm] 174/92 H 168/83 H Pulse Oximetry 90 96 Oxygen Delivery Me thod Room Air Room Air Labs/Imaging Labs Labs: No new labs today. Progress Note: A&P Assessment and plan (1) Small bowel obstruction: Problem details: - She is not currently nauseous and looks fairly well. I do not think she needs an NGT at this time. IVF maintenance. Admit, NPO, ondansetron prn. No known h/o abdominal surgeries. Obtain records from [place]. Will consult general surgery. Due to cognitive impairment may be difficult to determine when she is passing gas Status: Acute Plan Trini is doing well and seems to be improving though still likely obstructed. Continue NPO status. Ice chips okay for comfort.
--- NOTE | 2023-08-05 12:58 | PM.IMPN1 ---
Progress Note: A&P Assessment and plan (1) Small bowel obstruction: Problem details: - She is not currently nauseous and looks fairly well. I do not think she needs an NGT at this time. IVF maintenance. Admit, NPO, ondansetron prn. No known h/o abdominal surgeries. Obtain records from [place]. Will consult general surgery. Due to cognitive impairment may be difficult to determine when she is passing gas Status: Acute (2) Pulmonary embolism: Problem details: Remains on eliquis for this. Continue Eliquis as patient does not appear to be needing surgery at this time Status: Acute (3) Cognitive impairment: Problem details: She appears to have moderate dementia clinically. Status: Chronic (4) Asthma: Problem details: Continue home meds. Asthma seems quiescent at this time Status: Chronic (5) Essential hypertension: Problem details: Continue home meds. Status: Chronic (6) Hyperlipidemia: Problem details: Continue home meds. Status: Chronic Plan Continue in hospital for IV fluids and monitoring for complications of bowel obstruction. Advance diet as evidence of antegrade bowel function appears. Time Spent With Patient Total time spent: Total time spent today is 35 minutes, 25 minutes in coordination of care discussing with patient and other providers ongoing management of small bowel obstruction Subjective Date Seen: 08/05/23 Interval history: 78-year-old female resident of [facility] admitted through the emergency department last night with nausea and vomiting. Patient is unable to give any history of this. She tells me she thinks she had some left flank plain yesterday but that is gone today. She had an emesis during the night but otherwise reports feeling fine this morning she reports she is hungry and thirsty today. She does not know if she has had a bowel movement or passed any gas. She thinks she had a normal bowel movement yesterday. She is unsure if she has had previous bowel obstructions or previous abdominal surgery. Family was able to report that she had a large ovarian cyst leading to AE hysterectomy and oophorectomy many years ago. Following that surgery she had problems with wound healing and required a wound VAC. Patient reports she has been passing some gas. She is unsure how much or when. She has not had a bowel movement. Nurses are unaware of any ongoing bowel activity. She is not having any abdominal pain. Patient reports no nausea or vomiting. She has been drinking says sips of water and ice chips. Exam Narrative: Exam Narrative: She is alert and pleasant and appears in no distress. Respirations are clear to auscultation. Cardiovascular: S1, S2, regular rate and rhythm. No murmur gallop or rub. Abdomen: Bowel sounds are diminished. Abdomen is soft with minimal right upper quadrant tenderness. No peritonitis. Extremities without edema Const: Vital Signs, click to edit/add: Vital Signs - 24 hr 08/04/23 15:00 08/04/23 19:00 08/04/23 23:44 Temperature 99.0 F 98.7 F 98.5 F Pulse Rate [Left R adial] 78 Pulse Rate [Right Pulse Oximeter] 95 83 82 Respiratory Rate 18 18 22 Blood Pressure [Ri ght Arm] 149/82 H 156/77 H 154/90 H Pulse Oximetry 95 93 92 Oxygen Delivery Me thod Room Air Room Air Room Air 08/05/23 03:05 08/05/23 07:35 08/05/23 11:00 Temperature 98.7 F 98.4 F 98.2 F Pulse Rate [Left R adial] Pulse Rate [Right Pulse Oximeter] 77 74 72 Respiratory Rate 20 20 20 Blood Pressure [Ri ght Arm] 174/92 H 168/83 H 153/78 H Pulse Oximetry 90 96 95 Oxygen Delivery Me thod Room Air Room Air Room Air Documenting provider has reviewed patient's vital signs: yes
--- NOTE | 2023-08-05 14:23 | PC.NURSE ---
Pt denies pain, N/V. Encouraged ambulation. Walked in adams x1 for 400ft. Up in chair.
[2023-08-05 15:00] VITALS: BP 155/77; PULSE 69; RESP 20; TEMP 36.4; O2SAT 98
[2023-08-05 19:00] VITALS: BP 153/79; PULSE 72; RESP 18; TEMP 37; O2SAT 94
[2023-08-05] MEDS: BUDESONIDE FORMOTEROL IH (19:21)
--- NOTE | 2023-08-05 22:50 | PC.NURSE ---
15-2300 Pt ambulated halls x1 this shift with walker, GB, SBA, declined to walk a 3rd time, stated she was tired. re-educated pt on importance of moving to help stimulate bowel movements, pt got frustrated stating that staff needs to remind her more frequently, nurse wrote down educating topics on paper and left on pt bedside to help pt remember topics. No BM this shift, NPO with minimal ice chips, no N/V. hypoactive bowel sounds.
[2023-08-05 23:00] VITALS: BP 161/75; PULSE 77; RESP 17; TEMP 37.1; O2SAT 92
[2023-08-06] MEDS: LACTATED RINGERS 1000 ML 1,000 ML 125 ML IV (03:04)
[2023-08-06 03:06] VITALS: BP 181/82; PULSE 71; RESP 20; TEMP 36.8; O2SAT 96
--- NOTE | 2023-08-06 05:10 | PC.NURSE ---
Addendum entered by Cassy Márquez RN 08/06/23 06:51: Patient had a second continent small loose stool at 0630. Original Note: Patient pleasant, alert and cooperative. Stand by assist with walker. Denies pain but reports having some abdominal tenderness. Bowel sounds active. Had one small loose continent BM at 0415. ?
[2023-08-06 06:08] LABS: Lactate* 0.8 mmol/L (0.5-1.9)
[2023-08-06 06:30] LABS: Basophils Absolute Auto 0.01 K/uL (0.00-0.30); Basophils Percent Auto 0.1 % (0.0-3.0); Eosinophils Absolute Auto 0.19 K/uL (0.00-0.50); Eosinophils Percent Auto 2.1 % (0.0-7.0); Hematocrit 35.5 % (33.0-51.0); Hemoglobin* 11.3 gm/dL (12.0-16.0); Immature Granulocytes Abs Auto 0.03 K/uL (0.00-0.30); Immature Granulocytes Pct Auto 0.3 %; Lymphocytes Absolute Auto 2.14 K/uL (0.90-2.90); Lymphocytes Percent Auto 23.5 % (20-44); Mean Corpuscular HGB Conc 32 gm/dL (32-36); Mean Corpuscular Hemoglobin 24 pg (26-34); Mean Corpuscular Volume 76 fL (80-100); Monocytes Percent Auto 12.7 % (0.0-11.0); Neutrophils Absolute Auto 5.57 K/uL (1.7-7.0); Neutrophils Percent Auto 61.3 % (42.0-72.0); Platelet Count* 259 K/uL (140-440); RDW Coefficient of Variation % 15.2 % (11.5-15.5); Red Blood Count 4.65 m/uL (4.00-5.20)
[2023-08-06 06:42] LABS: Slide Review Reflex No
[2023-08-06 07:11] LABS: Chloride* 102 mmol/L (96-114); Potassium* 4.1 mmol/L (3.6-5.1); Sodium* 133 mmol/L (135-149)
[2023-08-06 07:14] LABS: Anion Gap 8 mEq/L (7-15); Blood Urea Nitrogen* 23 mg/dL (7-30); Carbon Dioxide* 23 mmol/L (20-32); Creatinine* 0.7 mg/dL (0.5-1.5); Est. Creatinine Clearance* 41.33; Estimated Glomerular Filt Rate 90 ml/min
[2023-08-06 07:15] LABS: Glucose* 68 mg/dL (60-115)
[2023-08-06] MEDS: BUDESONIDE FORMOTEROL IH (07:27)
[2023-08-06 07:38] VITALS: BP 157/87; PULSE 67; RESP 14; TEMP 36.7; O2SAT 95
[2023-08-06] MEDS: APIXABAN 5 MG TABLET PO (08:53)
[2023-08-06] MEDS: ENALAPRIL MALEATE 10 MG TABLET 5 MG PO (08:54)
--- NOTE | 2023-08-06 09:00 | PM.GSPN ---
Subjective Subjective Date Seen: 08/06/23 Interval history: Trini states that she feels ?achy today. She did have a bowel movement, she states today. States that her abdomen may be more sore today but denies nausea. She states that she did not sleep well overnight. Exam Narrative: Exam Narrative: General: Patient is somewhat sleepy but arouses easily and is conversant Abdomen: Protuberant. Minimally tender to palpation. Hyperactive bowel sounds noted. Const: Vital Signs, click to edit/add: Vital Signs - 24 hr 08/05/23 11:00 08/05/23 15:00 08/05/23 19:00 Temperature 98.2 F 97.6 F 98.6 F Pulse Rate [Right Pulse Oximeter] 72 69 72 Respiratory Rate 20 20 18 Blood Pressure [Ri ght Arm] 153/78 H 155/77 H 153/79 H Pulse Oximetry 95 98 94 Oxygen Delivery Me thod Room Air Room Air Room Air 08/05/23 23:00 08/06/23 03:06 08/06/23 07:38 Temperature 98.7 F 98.3 F 98.0 F Pulse Rate [Right Pulse Oximeter] 77 71 67 Respiratory Rate 17 20 14 Blood Pressure [Ri ght Arm] 161/75 H 181/82 H 157/87 H Pulse Oximetry 92 96 95 Oxygen Delivery Me thod Room Air Room Air Room Air Labs/Imaging Labs Labs: White blood cell count today is normal. Progress Note: A&P Assessment and plan (1) Small bowel obstruction: Problem details: - She is not currently nauseous and looks fairly well. I do not think she needs an NGT at this time. IVF maintenance. Admit, NPO, ondansetron prn. No known h/o abdominal surgeries. Obtain records from [place]. Will consult general surgery. Due to cognitive impairment may be difficult to determine when she is passing gas Status: Acute Plan Trini is a 78-year-old female with what appears to be a resolving small bowel obstruction. As long as she continues to improve it is okay to advance her diet - full would start with a liquid diet and advance to regular for lunch as long as she tolerates this well. If she continues to have antegrade bowel function and no nausea she could potentially be discharged home.
--- NOTE | 2023-08-06 09:49 | PC.SOCIAL ---
Discharge planning: Met with pt regarding d/c plan. Pt states she lives at [facility] and gets some services but is mostly independent. Pt states she receives morning and evening medication pass and assistance with bathing. She also goes out to all her meals at [facility] dining room. Pt has no concerns about discharge and plans to return to [facility] at discharge. With pt permission, called [facility] nursing [phone] and left message stating pt may be ready for discharge today or tomorrow with no increased needs and left phone number to call back if there are any concerns or questions regarding discharge. foot worker to follow up as needed.
[2023-08-06 10:47] VITALS: BP 163/75; PULSE 66; RESP 16; TEMP 36.4; O2SAT 96
--- NOTE | 2023-08-06 14:00 | P.DS_ITS ---
DS: Providers Provider Date Seen: 08/06/23 Date of admission: 08/03/23 23:48 Primary care physician: Melchor Ya MD Admitting Clinician: Esha Barnes MD Attending Physician on discharge: Nino Will MD Date of Discharge: 08/06/23 DS: Diagnosis Discharge Diagnosis (1) Small bowel obstruction: Status: Acute Problem details: History of bowel obstruction. History of laparotomy with removal of uterus and ovarian cyst in the remote past. Surgery was complicated by difficulty with wound healing requiring placement of a wound VAC. (2) Pulmonary embolism: Status: Acute Problem details: Remains on eliquis for this. (3) Cognitive impairment: Status: Chronic Problem details: She appears to have moderate dementia clinically. DS: Summary Hospital Course Hospital Course: 78-year-old female admitted to the hospital with abdominal pain nausea and vomiting. At the time of admission she was diagnosed with a small-bowel obstruction, a recurrent problem for her. She was treated with IV fluids, NPO. With subsequent days in the hospital she had return of antegrade function and resolution of symptoms of bowel obstruction. She has had multiple loose stools today. He is eating a normal diet. Her abdominal pain is resolved Status at Discharge Functional status at discharge: uses cane/walker Overall status at discharge: patient is back to baseline Time Spent with Patient Time attestation: Total time spent providing and/or coordinating discharge services: Time spent: Greater than 30 minutes Exam Narrative: Exam Narrative: She is alert and appears in no distress. Mood and affect are bright. Breathing is unlabored. Abdomen is soft without tenderness. Const: Vital Signs, click to edit/add: Vital Signs - 24 hr 08/05/23 15:00 08/05/23 19:00 08/05/23 23:00 Temperature 97.6 F 98.6 F 98.7 F Pulse Rate [Right Pulse Oximeter] 69 72 77 Respiratory Rate 20 18 17 Blood Pressure [Ri ght Arm] 155/77 H 153/79 H 161/75 H Pulse Oximetry 98 94 92 Oxygen Delivery Me thod Room Air Room Air Room Air 08/06/23 03:06 08/06/23 07:38 08/06/23 10:47 Temperature 98.3 F 98.0 F 97.6 F Pulse Rate [Right Pulse Oximeter] 71 67 66 Respiratory Rate 20 14 16 Blood Pressure [Ri ght Arm] 181/82 H 157/87 H 163/75 H Pulse Oximetry 96 95 96 Oxygen Delivery Me thod Room Air Room Air Room Air Documenting provider has reviewed patient's vital signs: yes DS: Data Data Completed and Pending Labs on day of discharge: Labs from last 24 hours 08/06/23 05:41 WBC 9.10 RBC 4.65 Hgb 11.3 L Hct 35.5 MCV 76 L MCH 24 L MCHC 32 RDW Coeff of Silas 15.2 Plt Count 259 Neut % (Auto) 61.3 Lymph % (Auto) 23.5 [place] % (Auto) 12.7 H Eos % (Auto) 2.1 Baso % (Auto) 0.1 Neut # (Auto) 5.57 Lymph # (Auto) 2.14 [place] # (Auto) 1.20 H Eos # (Auto) 0.19 Baso # (Auto) 0.01 Abs Immat Gran (auto) 0.03 Imm/Tot Granulo (auto) 0.3 Sodium 133 L Potassium 4.1 Chloride 102 Carbon Dioxide 23 Anion Gap 8 BUN 23 Creatinine 0.7 Estimated Creat Clear 41.33 Estimated GFR 90 Glucose 68 Lactate 0.[address] scan - abdomen: Radiologist's impression: NDICATION: Small-bowel obstruction TECHNIQUE: CT abdomen and pelvis acquired with 83 cc Isovue 370 IV contrast. COMPARISON: None. FINDINGS: Lower chest: Unremarkable. Liver: Unremarkable. Normal in size and attenuation. No masses. Gallbladder and bile ducts: Cholelithiasis. No biliary dilatation. Pancreas: Unremarkable. No mass or inflammation. Spleen: Unremarkable. Normal in size. No masses. Adrenal glands: Unremarkable. No nodules. Kidneys: Unremarkable. No masses, stones, or hydronephrosis. GI tract: Dilated fluid-filled loops of small bowel with transition point in the anterior abdomen around image 53 of series 2. Findings compatible with mechanical small-bowel obstruction. Vasculature: Unremarkable. Mesenteric arteries are patent. Lymph nodes: No lymphadenopathy. Omentum/Peritoneum/Abdominal Wall: Unremarkable. No sign of mass or infiltration. No free air or significant free fluid. Pelvis: Unremarkable. Bones: Unremarkable for age. IMPRESSION: Small-bowel obstruction. Discharge Plan Discharge Disposition: [facility] Date of Admission: 08/03/23 23:48 Attending Provider on Discharge: Aditya Will Consulting Providers: Jai,Lindsey P Primary Care Provider: Melchor Ya Condition: Unchanged Anticipated Discharge Date/Time: 08/06/23 12:20 Discharge Medications: Continued budesonide-formoterol [Symbicort] 160-4.5 mcg/actuation HFA aerosol inhaler 2 puff INHALATION Q12H cholecalciferol (vitamin D3) 125 mcg (5,000 unit) capsule 125 mcg PO DAILY Eliquis 5 mg tablet 5 mg PO BID enalapril maleate 5 mg tablet 5 mg PO DAILY loratadine 10 mg tablet 10 mg PO DAILY tiotropium bromide [Spiriva with HandiHaler] 18 mcg capsule, w/inhalation device 1 cap INHALATION DAILY lutein 10 mg tablet 20 mg PO DAILY Rx Instructions: give with meal/snack acetaminophen [Pain Reliever ES(acetaminophn)] 500 mg tablet 1,000 mg PO BID theophylline 600 mg tablet extended release 24 hr 600 mg PO DAILY melatonin 3 mg tablet 3 mg PO HS Discharge Orders: Discharge Order (Routine); Ordered 08/06/23 Ordered By: Aditya Will Activity Level: Activity as Tolerated Discharge Diet: Regular Follow Up Appointments: Melchor Ya MD [Primary Care Provider] - Forms: [employer] Info Instructions Admit to: Assisted Living Can use facility standing orders?: Yes Code Status: Full Code Oxygen: No Urinary Catheter: No
--- NOTE | 2023-08-06 15:50 | PC.NURSE ---
Pt alert to self. Pt assist of one with walker and gait belt. Pt had no complaints of pain. Pt advanced to regular diet and tolerated well. Pt was able to have bowel movement during mid-morning. Pt discharged back to [facility] and was picked up by [facility] transportation at 1400. IV removed.
== END 2023-08-06 14:00 | DRG 388 ==
LOC: ED 21:22 → MEDSURG 22:07
PROVIDERS: Family Medicine; Admitting Provider Family Medicine; Emergency Provider Emergency Medicine Emergency Medical Services; PCP Family Medicine; Visit Provider Family Medicine
DX: K56.609 Unspecified intestinal obstruction, unspecified as to partial versus complete obstruction (principal); I26.99 Other pulmonary embolism without acute cor pulmonale; G31.84 Mild cognitive impairment of uncertain or unknown etiology; J45.909 Unspecified asthma, uncomplicated; I10 Essential (primary) hypertension; E78.5 Hyperlipidemia, unspecified; R11.2 Nausea with vomiting, unspecified; Z79.01 Long term (current) use of anticoagulants; R10.32 Left lower quadrant pain
CPT/HCPCS: 36415; 74019; 74177; 80048; 83605; 85025; 97116; 97161; 97165; 97535; 99284; A9270; J0780; J1170; J2405; J7120; Q9967

== ENCOUNTER 2023-08-15 21:44 | Outpatient (CLI) | payer MEDICARE, SELFPAY | END 2023-08-15 21:45 | disposition home or self-care (01) | LOC: AMB 08-18 09:00 | PROVIDERS: PCP Family Medicine; Visit Provider Student in an Organized Health Care Education/Training Program | DX: R53.81 Other malaise (principal) | CPT/HCPCS: A0425; A0429 ==

== ENCOUNTER 2023-08-15 21:53 | Emergency (ER) | payer MEDICARE, SELFPAY ==
[2023-08-15 22:00] VITALS: O2SAT 95
[2023-08-15 22:05] VITALS: BP 134/81; PULSE 95; RESP 18; TEMP 36.9; O2SAT 95; BMI 29.2
--- NOTE | 2023-08-15 22:10 | ED.NURSE ---
nurse ent consultant contacted, nurse states pt downplaying symptoms, pt was vomiting on and off today multiple times with diarrhea and report of abd pain. pt denies this on arrival.
--- NOTE | 2023-08-15 22:32 | CRLHL7_ITS ---
For Patients: As a result of the Century Cures Act, medical imaging exams and procedure reports are released immediately into your electronic medical record. You may view this report before your referring provider. If you have questions, please contact your health care provider. INDICATION: ABD PAIN, DIARRHEA, PREVIOUS SBO. TECHNIQUE: CT abdomen and pelvis acquired with 100 cc Omnipaque 350 IV contrast. COMPARISON: None. FINDINGS: Lower chest: Unremarkable. Liver: Unremarkable. Normal in size and attenuation. No suspicious masses. Gallbladder and bile ducts: Cholelithiasis. No gallbladder wall thickening or pericholecystic fluid... No biliary dilatation. Pancreas: Unremarkable. No mass or inflammation. Spleen: Unremarkable. Normal in size. No masses. Adrenal glands: Unremarkable. No nodules. Kidneys: Unremarkable. No suspicious masses, stones, or hydronephrosis. GI tract: Small hiatal hernia. Scattered colonic diverticula. No evidence of diverticulitis. Air-fluid levels within the large bowel indicative of diarrheal illness. No bowel obstruction. Vasculature: Abdominal aorta is normal in caliber. Mesenteric arteries are patent. Lymph nodes: No lymphadenopathy. Peritoneum/Abdominal Wall: Unremarkable. No sign of mass or infiltration. No free air or significant free fluid. Pelvis: Unremarkable. Bones: Unremarkable for age. IMPRESSION: 1. no acute intra-abdominal process identified. 2. Air-fluid levels within the large bowel indicative of diarrheal illness. No bowel obstruction. 3. Cholelithiasis. Please note that all CT scans at this facility use dose modulation, iterative reconstruction, and/or weight-based dosing when appropriate to reduce radiation dose to as low as reasonably achievable. Dictated by Hayden Fernandez MD @ 08/15/2023 11:36:05 PM (Electronically Signed)
[2023-08-15 22:39] LABS: Creatinine, Point-of-Care* 1.1 mg/dl (0.6-1.3)
--- NOTE | 2023-08-15 22:42 | ED.GENADULT ---
HPI - General Adult General Date Seen: 08/15/23 Chief complaint: Unspecified Complaint, Adult Stated complaint: bowel obstruction Time Seen by Provider: 08/15/23 21:55 Source: patient, old records reviewed and other (Assisted living staff) Mode of arrival: ambulatory History of Present Illness HPI narrative: Patient is a 78-year-old female with a history of cognitive impairment, PE on Eliquis, SBO, hypertension presenting to emergency department for mild abdominal pain, nausea, loose stools. She states is she has been having this abdominal pain and nausea since this morning. She does states she had a loose bowel movement this morning. Staff was concerned because last time she had symptoms like this she had a small bowel obstruction. That was last week. The patient states she is otherwise feeling well right now and states the pain is relatively mild. She has no other concerns at this time. Denies chest pain, shortness of breath, fevers, chills, headache, vision changes, weakness, numbness. Patient was initially saying she was having no problems whatsoever and does not know why she was sent here so we called her assisted living and they explained the reasoning and at these with the same symptoms when she had her SBO. Related Data Home Medications Medication Instructions Recorded Confirmed apixaban 5 mg tablet (Eliquis) 5 mg PO BID 08/03/23 08/03/23 budesonide-formoterol HFA 160 2 puff inhalation Q12H 08/03/23 08/03/23 mcg-4.5 mcg/actuation aerosol inhaler (Symbicort) cholecalciferol (vitamin D3) 125 125 mcg PO DAILY 08/03/23 08/03/23 mcg (5,000 unit) capsule enalapril maleate 5 mg tablet 5 mg PO DAILY 08/03/23 08/03/23 loratadine 10 mg tablet 10 mg PO DAILY 08/03/23 08/03/23 tiotropium bromide 18 mcg capsule 1 cap inhalation DAILY 08/03/23 08/03/23 with inhalation device (Spiriva with HandiHaler) acetaminophen 500 mg tablet (Pain 1,000 mg PO BID 08/04/23 08/04/23 Reliever Extra Strength (acetaminophen)) lutein 10 mg tablet 20 mg PO DAILY 08/04/23 08/04/23 melatonin 3 mg tablet 3 mg PO HS 08/04/23 08/04/23 theophylline 600 mg 600 mg PO DAILY asthma 08/04/23 08/04/23 tablet,extended release 24 hr Allergies Allergy/AdvReac Type Severity Reaction Status Date / Time diphenhydramine Allergy Verified 08/15/23 22:07 naproxen Allergy Verified 08/15/23 22:07 Review of Systems Status of ROS: Reports: 10 or more systems reviewed and unremarkable except as noted in History and below [facility] Medical History (Updated 08/15/23 @ 23:55 by Pan Harvey DO) Hyperlipidemia ?E78.5 - Hyperlipidemia, unspecified (ICD-10) Gout ?M10.9 - Gout, unspecified (ICD-10) Essential hypertension ?I10 - Essential (primary) hypertension (ICD-10) Asthma ?J45.909 - Unspecified asthma, uncomplicated (ICD-10) Cognitive impairment ?R41.89 - Other symptoms and signs involving cognitive functions and awareness (ICD-10) Pulmonary embolism ?I26.99 - Other pulmonary embolism without acute cor pulmonale (ICD-10) Social History (Updated 08/04/23 @ 00:26 by Esha Barnes MD) Narrative: Bowen Salas. Says she has a glass of wine some days, but not all days in the week. Lifelong nonsmoker. POLST from 01/04/2022 states FULL CODE. What is your current living situation?: I presently have a place to live Problems where you live: no known problems Problems where you live details: NA In the past 12 months, utilities in danger of being shut off: no In past 12 months, lack of transportation kept you from medical appts, meetings, work, or getting things needed for daily living: no In the past 12 mos, have been you worried that your food would run out before you had money to buy more?: never true In the past 12 mos, the food you bought just didn't last and you didn't have money to buy more?: never true Highest level of school completed/degree received: some college, no degree Smoking Status: Never smoker How often do you have a drink containing alcohol: 2-3 times a week Alcohol type: wine Alcohol type details: 1 glass AUDIT-C Alcohol total score: 3 Non-prescribed substance use: denies use Caffeine: No How often does anyone, including family, friends and others, physically hurt you: never How often does anyone, including family, friends and others, insult or talk down to you: never How often does anyone, including family, friends and others, threaten you with harm: never How often does anyone, including family, friends and others, scream or curse at you: never service: No Exam Narrative: Exam Narrative: Const: Well-nourished, Well-developed, in mild distress Eyes: PERRL, no conjunctival injection, and symmetrical lids HENT: Atraumatic external nose and ears. Moist mucous membranes. Neck: Symmetric, trachea midline, No thyromegaly. CVS: RRR, No murmurs or gallops. Peripheral pulses 2+ and equal in all extremities RESP: Unlabored respiratory effort. Clear to auscultation bilaterally. GI: Mild right lower quadrant tenderness, Nondistended, No rebound or guarding. MSK:Extremities w/o deformity, Normal Active ROM Skin: Warm, Dry. No rashes or lesions. Neuro: Normal Muscle tone, No focal neurological deficits. Psych: Awake, Alert, & Oriented x3. Appropriate mood and affect. Const: Vital Signs, click to edit/add: Vital Signs - 24 hr 08/15/23 22:00 08/15/23 22:05 08/16/23 00:05 Temperature 98.5 F 98.0 F Pulse Rate [Right Pulse Oximeter] 95 89 Respiratory Rate 18 18 Blood Pressure [Ri ght Upper Arm] 134/81 125/74 Pulse Oximetry 95 95 95 Oxygen Delivery Me thod Room Air Room Air 08/16/23 00:11 Temperature 98.0 F Pulse Rate [Right Pulse Oximeter] 89 Respiratory Rate 18 Blood Pressure [Ri ght Upper Arm] 125/74 Pulse Oximetry Oxygen Delivery Me thod Course Vital Signs Vital signs: Initial Vital Signs Pulse Oximetry 95 08/15/23 22:00 Vital Signs Pulse Oximetry 95 08/15/23 22:00 Temperature 98.0 F 08/16/23 00:11 Pulse Rate 89 08/16/23 00:11 Respiratory Rate 18 08/16/23 00:11 Blood Pressure 125/74 08/16/23 00:11 Pulse Oximetry 95 08/16/23 00:05 Oxygen Delivery Method Room Air 08/16/23 00:05 Medications Administered Medications: Discontinued Medications Generic Name Dose Route Start Last Admin Trade Name Corby PRN Reason Stop Dose Admin Sodium Chloride 1,000 mls @ 125 mls/hr 08/15/23 23:34 08/15/23 23:47 0.9 % Sodium Chloride 1000 Ml IV Not Given .Q8H JOSIE Medical Decision Making MDM Narrative Medical decision making narrative: Patient is a 78-year-old female presenting to the emergency department for nausea and abdominal pain. She is not having any urinary symptoms. Last time she symptoms like this he had a small bowel obstruction last week. Surgery was not needed. Did do a CBC and CMP. Returned showing no concerning abnormalities. She is having right lower quadrant pain since there is concern for appendicitis and a CT abdomen and pelvis with contrast was ordered. That returned showing cholelithiasis which was seen on a previous exam, diarrheal disease. She did states she had some loose stools today but she is not appear to be having C diff at this time and she only had 1 loose stool so I do not believe is necessary to test her for C diff. she is otherwise doing well at this time and is not having any complaints. Has not required any medications. Due to her age abdominal issues can be related to heart problems I did do a troponin which showed no acute abnormalities in a EKG which showed no concerning findings. ACS seems unlikely at this time. She will be discharged back to her assisted living. She is agreeable with this plan. Lab Data Labs: Lab Results 08/15/23 08/15/23 08/15/23 Range/Units 22:15 22:17 23:15 WBC 9.05 (4.50-11.00) K/uL RBC 5.16 (4.00-5.20) m/uL Hgb 12.4 (12.0-16.0) gm/dL Hct 38.5 (33.0-51.0) % MCV 75 L (80-100) fL MCH 24 L (26-34) pg MCHC 32 (32-36) gm/dL RDW Coeff of Silas 15.7 H (11.5-15.5) % Plt Count 288 (140-440) K/uL Neut % (Auto) 70.6 (42.0-72.0) % Lymph % (Auto) 12.5 L (20-44) % [place] % (Auto) 15.9 H (0.0-11.0) % Eos % (Auto) 0.0 (0.0-7.0) % Baso % (Auto) 0.1 (0.0-3.0) % Neut # (Auto) 6.39 (1.7-7.0) K/uL Lymph # (Auto) 1.10 (0.90-2.90) K/uL [place] # (Auto) 1.40 H (0.00-0.90) K/UL Eos # (Auto) 0.00 (0.00-0.50) K/uL Baso # (Auto) 0.01 (0.00-0.30) K/uL Abs Immat Gran (auto) 0.08 (0.00-0.30) K/uL Imm/Tot Granulo (auto) 0.9 % Sodium 133 L (135-149) mmol/L Potassium 4.0 (3.6-5.1) mmol/L Chloride 104 (96-114) mmol/L Carbon Dioxide 15 L (20-32) mmol/L Anion Gap 14 (7-15) mEq/L BUN 19 (7-30) mg/dL Creatinine 0.9 (0.5-1.5) mg/dL Estimated Creat Clear 41.33 Estimated GFR 66 ml/min Glucose 126 H (60-115) mg/dL Calcium 9.6 (8.4-10.6) mg/dL Total Bilirubin 0.4 (0.1-1.5) mg/dL Direct Bilirubin 0.1 (0.0-0.5) mg/dL AST 23 (12-35) U/L ALT 17 (4-35) U/L Alkaline Phosphatase 72 (40-150) U/L Troponin I < 0.01 L (0.01-0.04) ng/mL Total Protein 7.5 (6.0-8.3) g/dL Albumin 4.3 (3.3-5.0) g/dL Lipase 66 (23-300) U/L POC Creatinine 1.1 (0.6-1.3) mg/dl Imaging Data Abdomen pelvis CT scan: Radiologist's impression: 1. no acute intra-abdominal process identified. 2. Air-fluid levels within the large bowel indicative of diarrheal illness. No bowel obstruction. 3. Cholelithiasis. Please note that all CT scans at this facility use dose modulation, iterative reconstruction, and/or weight-based dosing when appropriate to reduce radiation dose to as low as reasonably achievable. Dictated by Hayden Fernandez MD @ 08/15/2023 11:36:05 PM ECG Data Attestation: I personally reviewed and interpreted this ECG as follows: Prior ECG tracings: not available for review Interpretation: Normal sinus rhythm with a left anterior fascicular block, rate of 86 beats per minute, normal intervals, normal axis, no ST or T-wave abnormalities Discharge Plan Discharge Clinical Impression: Abdominal pain Qualifiers: Abdominal location: right lower quadrant Qualified Code(s): R10.31 - Right lower quadrant pain Patient Disposition: Home, Self-Care Condition: Stable Instructions: Abdominal Pain (ED) Additional Instructions: It does appear like you have a diarrheal disease. This is likely viral in you can follow-up with your primary care provider if symptoms persist. Return to the emergency department for new or worsening symptoms Prescriptions: No Action budesonide-formoterol [Symbicort] 160-4.5 mcg/actuation HFA aerosol inhaler 2 puff INHALATION Q12H cholecalciferol (vitamin D3) 125 mcg (5,000 unit) capsule 125 mcg PO DAILY Eliquis 5 mg tablet 5 mg PO BID enalapril maleate 5 mg tablet 5 mg PO DAILY loratadine 10 mg tablet 10 mg PO DAILY tiotropium bromide [Spiriva with HandiHaler] 18 mcg capsule, w/inhalation device 1 cap INHALATION DAILY lutein 10 mg tablet 20 mg PO DAILY Rx Instructions: give with meal/snack acetaminophen [Pain Reliever ES(acetaminophn)] 500 mg tablet 1,000 mg PO BID theophylline 600 mg tablet extended release 24 hr 600 mg PO DAILY melatonin 3 mg tablet 3 mg PO HS Follow Up/Referrals: Melchor Ya MD [Primary Care Provider] - Stand Alone Forms: [employer] Info Instructions
[2023-08-15 22:52] LABS: Albumin* 4.3 g/dL (3.3-5.0); Chloride* 104 mmol/L (96-114); Sodium* 133 mmol/L (135-149)
[2023-08-15 22:55] LABS: Alanine Aminotransferase* 17 U/L (4-35); Alkaline Phosphatase* 72 U/L (40-150); Aspartate Amino Transferase* 23 U/L (12-35); Basophils Absolute Auto 0.01 K/uL (0.00-0.30); Basophils Percent Auto 0.1 % (0.0-3.0); Bilirubin Direct* 0.1 mg/dL (0.0-0.5); Bilirubin Total* 0.4 mg/dL (0.1-1.5); Creatinine* 0.9 mg/dL (0.5-1.5); Est. Creatinine Clearance* 41.33; Estimated Glomerular Filt Rate 66 ml/min; Hematocrit 38.5 % (33.0-51.0); Hemoglobin* 12.4 gm/dL (12.0-16.0); Immature Granulocytes Abs Auto 0.08 K/uL (0.00-0.30); Immature Granulocytes Pct Auto 0.9 %; Lymphocytes Percent Auto 12.5 % (20-44); Mean Corpuscular HGB Conc 32 gm/dL (32-36); Mean Corpuscular Hemoglobin 24 pg (26-34); Mean Corpuscular Volume 75 fL (80-100); Monocytes Percent Auto 15.9 % (0.0-11.0); Neutrophils Absolute Auto 6.39 K/uL (1.7-7.0); Neutrophils Percent Auto 70.6 % (42.0-72.0); Platelet Count* 288 K/uL (140-440); RDW Coefficient of Variation % 15.7 % (11.5-15.5); Red Blood Count 5.16 m/uL (4.00-5.20); Total Protein* 7.5 g/dL (6.0-8.3); White Blood Count* 9.05 K/uL (4.50-11.00)
[2023-08-15 22:56] LABS: Anion Gap 14 mEq/L (7-15); Blood Urea Nitrogen* 19 mg/dL (7-30); Calcium* 9.6 mg/dL (8.4-10.6); Carbon Dioxide* 15 mmol/L (20-32); Glucose* 126 mg/dL (60-115)
[2023-08-15 23:03] LABS: Slide Review Reflex No
[2023-08-15 23:24] LABS: Troponin I* < 0.01 ng/mL (0.01-0.04)
[2023-08-15 23:51] LABS: Lipase* 66 U/L (23-300)
[2023-08-16 00:05] VITALS: BP 125/74; PULSE 89; RESP 18; TEMP 36.7; O2SAT 95
[2023-08-16 00:11] VITALS: BP 125/74; PULSE 89; RESP 18; TEMP 36.7
== END 2023-08-16 00:11 | disposition home or self-care (01) ==
PROVIDERS: Emergency Provider Student in an Organized Health Care Education/Training Program; PCP Family Medicine
DX: R10.31 Right lower quadrant pain (principal)
CPT/HCPCS: 36415; 74177; 80048; 80076; 81001; 82565; 83690; 84484; 85025; 93005; 94761; 99283; 99285; Q9967

== ENCOUNTER 2023-08-16 00:08 | Outpatient (CLI) | payer MEDICARE, SELFPAY | END 2023-08-16 00:09 | disposition home or self-care (01) | LOC: AMB 08-18 09:06 | PROVIDERS: PCP Family Medicine; Visit Provider Family Medicine | DX: R10.9 Unspecified abdominal pain (principal); R11.2 Nausea with vomiting, unspecified | CPT/HCPCS: A0425; A0428 ==

== ENCOUNTER 2024-03-24 09:30 | Outpatient (REF) | payer MEDICARE, SELFPAY ==
[2024-03-24 11:12] LABS: Hemoglobin* 12.9 gm/dL (12.0-16.0)
[2024-03-24 11:26] LABS: Chloride* 105 mmol/L (96-114); Potassium* 4.3 mmol/L (3.6-5.1); Sodium* 139 mmol/L (135-149)
[2024-03-24 11:29] LABS: Anion Gap 12 mEq/L (7-15); Blood Urea Nitrogen* 18 mg/dL (7-30); Carbon Dioxide* 22 mmol/L (20-32); Estimated Glomerular Filt Rate 58 ml/min
[2024-03-24 11:30] LABS: Calcium* 10.3 mg/dL (8.4-10.6); Glucose* 129 mg/dL (60-115)
== END 2024-03-24 09:31 | disposition home or self-care (01) ==
LOC: NPINS 09:30
PROVIDERS: PCP Family Medicine; Visit Provider Nurse Practitioner Gerontology
DX: I10 Essential (primary) hypertension (principal)
CPT/HCPCS: 80048; 85018

== ENCOUNTER 2024-12-08 10:50 | Outpatient (REF) | payer MEDICARE, SELFPAY ==
[2024-12-08 12:37] LABS: Chloride* 101 mmol/L (96-114); Sodium* 137 mmol/L (135-149)
[2024-12-08 12:38] LABS: Potassium* 5.1 mmol/L (3.6-5.1)
[2024-12-08 12:41] LABS: Anion Gap 10 mEq/L (7-15); Blood Urea Nitrogen* 29 mg/dL (7-30); Carbon Dioxide* 26 mmol/L (20-32); Estimated Glomerular Filt Rate 58 ml/min; Glucose* 129 mg/dL (60-115)
== END 2024-12-08 10:51 | disposition home or self-care (01) ==
LOC: NPINS 10:50
PROVIDERS: PCP Family Medicine; Visit Provider Family Medicine
DX: I10 Essential (primary) hypertension (principal)
CPT/HCPCS: 80048

== ENCOUNTER 2025-04-13 14:31 | Outpatient (REF) | payer MEDICARE, SELFPAY ==
[2025-04-13 15:10] LABS: Chloride* 96 mmol/L (96-114); Sodium* 133 mmol/L (135-149)
[2025-04-13 15:11] LABS: Potassium* 4.3 mmol/L (3.6-5.1)
[2025-04-13 15:13] LABS: Blood Urea Nitrogen* 20 mg/dL (7-30); Creatinine* 1.0 mg/dL (0.5-1.5); Estimated Glomerular Filt Rate 58 ml/min
[2025-04-13 15:14] LABS: Anion Gap 10 mEq/L (7-15); Calcium* 10.0 mg/dL (8.4-10.6); Carbon Dioxide* 27 mmol/L (20-32); Glucose* 121 mg/dL (60-115)
== END 2025-04-13 14:32 | disposition home or self-care (01) ==
LOC: NPINS 14:31
PROVIDERS: PCP Family Medicine; Visit Provider Nurse Practitioner Gerontology
DX: I10 Essential (primary) hypertension (principal)
CPT/HCPCS: 80048

== ENCOUNTER 2025-08-10 10:49 | Outpatient (REF) | payer MEDICARE, SELFPAY ==
[2025-08-10 11:35] LABS: Chloride* 98 mmol/L (96-114); Sodium* 136 mmol/L (135-149)
[2025-08-10 11:36] LABS: Potassium* 4.7 mmol/L (3.6-5.1)
[2025-08-10 11:38] LABS: Blood Urea Nitrogen* 27 mg/dL (7-30); Creatinine* 1.0 mg/dL (0.5-1.5); Estimated Glomerular Filt Rate 58 ml/min
[2025-08-10 11:39] LABS: Anion Gap 11 mEq/L (7-15); Calcium* 9.9 mg/dL (8.4-10.6); Carbon Dioxide* 27 mmol/L (20-32); Glucose* 141 mg/dL (60-115)
== END 2025-08-10 10:50 | disposition home or self-care (01) ==
LOC: NPINS 10:49
PROVIDERS: PCP Family Medicine; Visit Provider Nurse Practitioner Gerontology
DX: I10 Essential (primary) hypertension (principal)
CPT/HCPCS: 80048